=== PATIENT | female | born 1960 | race Caucasian/White ===

== ENCOUNTER 2017-11-14 13:04 | Emergency (ER) | payer BC ==
[2017-11-14 13:58] VITALS: BP 144/73
--- NOTE | 2017-11-14 14:49 | UC ---
UC General HPI - HPI Summary HPI Summary: Pt presents with concern for "yellowing" of skin. Pt was told by friend "that she looked yellow". Pt c/o left side flank pain. Pt does not have PCP and recently moved here from [place]. 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 - History of Current Complaint Chief Complaint: UCGeneralIllness Stated Complaint: YELLOW SKIN TONE,ORANGE URINE Time Seen by Provider: 11/14/17 14:14 Hx Obtained From: Patient Onset/Duration: Gradual Onset, Lasting Days, Still Present Timing: Constant Current Severity: Moderate Pain Intensity: 0 Associated Signs & Symptoms: Positive: Abdominal Pain - discomfort - Allergy/Home Medications Allergies/Adverse Reactions: Allergies Allergy/AdvReac Type Severity Reaction Status Date / Time No Known Allergies Allergy Verified 11/14/17 13:52 Home Medications: Home Medications Naproxen TAB* [Naprosyn 250 mg TAB*] 500 mg PO DAILY PRN 11/14/17 [History Confirmed 11/14/17] PMH/Surg Hx/FS Hx/Imm Hx Previously Healthy: Yes - Surgical History Surgical History: Yes Surgery Procedure, Year, and Place: Lumbar or Sacral Surgery s/p [facility], 2009, [place] - Family History Known Family History: Positive: Cardiac Disease - Social History Occupation: Retired Lives: With Family Alcohol Use: None Substance Use Type: None Smoking Status (MU): Former Smoker Length of Time of Smoking/Using Tobacco: ~3/4 PPD x 32 Years Have You Smoked in the Last Year: No When Did the Patient Quit Smoking/Using Tobacco: ~2012 Review of Systems Constitutional: Fatigue Skin: Other - "yellow" Eyes: Other - yeloowing of sclera ENT: Negative Respiratory: Negative Cardiovascular: Negative Gastrointestinal: Abdominal Pain - generalized intermitten left flank Genitourinary: Other - araceli urine Motor: Negative Neurovascular: Negative Musculoskeletal: Myalgia Neurological: Weakness Psychological: Negative Is Patient Immunocompromised?: No All Other Systems Reviewed And Are Negative: Yes Physical Exam Triage Information Reviewed: Yes Appearance: Other: - fatigue Vital Signs: Initial Vital Signs Temp 97.5 F 11/14/17 13:50 Pulse 74 11/14/17 13:50 Resp 16 11/14/17 13:50 BP 144/73 11/14/17 13:50 Pulse Ox 99 11/14/17 13:50 Vital Signs Reviewed: Yes Eyes: Positive: Other: - jaundice ENT Exam: Normal Dental Exam: Normal Neck exam: Normal Respiratory Exam: Normal Cardiovascular Exam: Normal Abdomen Description: Positive: Nontender, No Organomegaly, Other: - mild ascites , Musculoskeletal Exam: Normal Neurological Exam: Normal Psychological Exam: Normal Skin Exam: Other - jaundice, head to upper thighs Course/Dx - Course Course Of Treatment: Pt does not have a PCP and was instructed to go directly to the Emergency room for further testing and evaluation. - Differential Dx - Multi-Symptom Differential Diagnoses: Other - hepatitis gallbladder disease/disorder cancer Provider Diagnoses: jaundice. abdominal pain Discharge - Sign-Out/Discharge Documenting (check all that apply): Patient Departure All imaging exams completed and their final reports reviewed: No Studies - Discharge Plan Condition: Stable Disposition: HOME-RECOMMEND TO ED Patient Education Materials: Abdominal Pain (ED), Jaundice (ED) Referrals: [facility] [Outside] - If Needed No Primary Care Phys,NOPCP [Primary Care Provider] - Additional Instructions: It is recommended that you go directly to the emergency room for further evaluation and testing. Please establish care with a PCP as soon as possible. - Billing Disposition and Condition Condition: STABLE Disposition: Home-Recommend to ED
== END 2017-11-14 14:58 | disposition home health service (06) ==
LOC: UCCORT 13:04
DX: R17 Unspecified jaundice (principal); R10.9 Unspecified abdominal pain; Z87.891 Personal history of nicotine dependence
CPT/HCPCS: 81003; 99202; G0463